=== PATIENT | male | born 1995 | race Caucasian/White ===

== ENCOUNTER 2016-12-16 06:18 | Inpatient (IN) | payer OTHER ==
[~2016-12-16] VITALS: Ht 175.3 cm; Wt 92.5 kg
[2016-12-16] MEDS ORDERED: BUPIVACAINE-MPF 0.25% 30 ML VIAL INJ ONE (07:24)
[2016-12-16] MEDS ORDERED: SEVOFLURANE 250 ML BTL INH ONE (07:25)
[2016-12-16] MEDS ORDERED: SUCCINYLCHOLINE CHLORIDE 200 MG/10 ML VIAL IV ONE (07:25)
[2016-12-16] MEDS ORDERED: PROPOFOL 200 MG/20 ML VIAL IV ONE (07:25)
[2016-12-16] MEDS ORDERED: ROCURONIUM 50 MG/5 ML VIAL IV ONE (07:25)
[2016-12-16] MEDS ORDERED: DEXAMETHASONE 4 MG/ML VIAL IVP ONE (07:25)
[2016-12-16] MEDS ORDERED: fentaNYL 0.05 MG/ML VIAL ONE (07:41)
[2016-12-16] MEDS ORDERED: MIDAZOLAM 2 MG/2 ML VIAL ONE (07:41)
[2016-12-16] MEDS ORDERED: MEPERIDINE 50 MG/ML SYR ONE (07:41)
[2016-12-16] MEDS ORDERED: LACTATED RINGERS 1,000 ML IV SCH (08:04)
[2016-12-16] MEDS ORDERED: HYDROmorphone 1 MG/ML AMP IVP PRN (08:05)
[2016-12-16] MEDS ORDERED: diphenhydrAMINE 50 MG/ML VIAL IVP PRN (08:05)
[2016-12-16] MEDS ORDERED: MEPERIDINE 25 MG/ML SYR IVP PRN (08:05)
[2016-12-16] MEDS ORDERED: ONDANSETRON 4 MG/2 ML VIAL IVP PRN (08:05)
[2016-12-16] MEDS: NACL 0.9% 1,000 ML IV SCH ×2 (09:39→23:57)
[2016-12-16] MEDS ORDERED: ONDANSETRON 4 MG/2 ML VIAL IV PRN (09:40)
[2016-12-16] MEDS ORDERED: HYDROcodone/APAP 5/325 MG 1 TAB TAB PO PRN (09:40)
[2016-12-16] MEDS ORDERED: ACETAMINOPHEN 325 MG TAB PO PRN (09:40)
[2016-12-16] MEDS ORDERED: MEPERIDINE 25 MG/ML SYR ONE (10:15)
[2016-12-16] MEDS ORDERED: HYDROmorphone 1 MG/ML AMP IVP ONE (10:55)
[2016-12-16] MEDS: MORPHINE SULFATE 4 MG/ML SYR IV PRN ×2 (12:00→18:34)
[2016-12-16 14:05] VITALS: BP 142/92
[2016-12-16 14:30] VITALS: BP 141/72
[2016-12-16] MEDS ORDERED: ACET-5629 PO (15:09)
[2016-12-16 16:00] VITALS: BP 127/78
[2016-12-16] MEDS: HYDROmorphone 1 MG/ML AMP IVP PRN ×2 (16:46→21:21)
[2016-12-16 21:10] VITALS: BP 134/73
[2016-12-17 00:37] VITALS: BP 122/68
[2016-12-17 07:25] LABS: BASOPHILS # (AUTO) 0.2 K/uL (0.00-0.22); BASOPHILS % (AUTO) 1.5 % (0.0-2.0); EOSINOPHILS # (AUTO) 0.1 K/uL (0-0.4); EOSINOPHILS % (AUTO) 0.5 % (0.0-4.0); HEMATOCRIT 44.3 % (36-52); HEMOGLOBIN 14.7 g/dL (12.0-18.0); LYMPHOCYTES # (AUTO) 1.5 K/uL (2.0-11.5); LYMPHOCYTES % (AUTO) 13.1 % (20.5-51.1); MEAN CORPUSCULAR HEMOGLOBIN 29 pg (27-31); MEAN CORPUSCULAR HGB CONC 33 g/dL (33-37); MEAN CORPUSCULAR VOLUME 88 fL (80-94); MONOCYTES # (AUTO) 1.4 K/uL (0.8-1.0); MONOCYTES % (AUTO) 12.3 % (1.7-9.3); NEUTROPHILS # (AUTO) 8.2 K/uL (1.8-7.7); NEUTROPHILS % (AUTO) 72.6 % (42.2-75.2); PLATELET COUNT (AUTO) 291 K/uL (140-450); RED BLOOD CELL COUNT(AUTO) 5.06 MIL/uL (4.20-6.10); RED CELL DISTRIBUTION WIDTH 12.6 % (11.6-13.7); WHITE BLOOD COUNT (AUTO) 11.4 K/uL (4.8-10.8)
[2016-12-17 07:51] LABS: ANION GAP 12.2 (8-16); CARBON DIOXIDE 28.2 mmol/L (21-32); CREATININE 0.8 mg/dL (0.7-1.3); POTASSIUM 3.4 mmol/L (3.5-5.1)
[2016-12-17 08:00] VITALS: BP 134/72
== END 2016-12-17 14:40 | disposition home or self-care (01) | DRG 263 ==
LOC: MDS 06:18 → MMU 06:19 → MTU 09:39 → MDS 09:40 → MTU 14:15 → OBSVTOIN 20:40
PROVIDERS: ADMIT Surgery; ATTEND Surgery
PROC: 0FT44ZZ Resection of Gallbladder, Percutaneous Endoscopic Approach (ICD-10-PCS; principal; 2016-12-16 07:30)
DX: K80.10 Calculus of gallbladder with chronic cholecystitis without obstruction (principal); K82.1 Hydrops of gallbladder
CPT/HCPCS: G0378 ×11; 36415; 71010; 80048; 85025; 86886; 86900; 86901; 87081; 88304; J0330; J0690; J1100; J1170; J2175; J2250; J2270; J2405; J2704; J3010; J3490; J7030; J7060; J7120